=== PATIENT | male | born 1975 | race Caucasian/White ===

== ENCOUNTER 2016-07-07 11:29 | Inpatient (IN) | payer OTHER ==
[2016-07-07 12:03] VITALS: BMI 40.3
[2016-07-07] MEDS ORDERED: MAG HYDROX/AL HYDROX/SIMETH 30 ML UNIT-DOSE CUP PO PRN (13:56)
[2016-07-07] MEDS ORDERED: P-EPHED 60MG/TRIPROLIDI 2.5MG TABLET PO PRN (13:56)
[2016-07-07] MEDS ORDERED: MAGNESIUM CITRATE 300 ML BOTTLE PO PRN (13:56)
[2016-07-07] MEDS ORDERED: hydrOXYzine PAMOATE 50 MG CAPSULE (FP) PO PRN (13:56)
[2016-07-07] MEDS ORDERED: LOPERAMIDE HCL 2 MG CAPSULE PO PRN (13:56)
[2016-07-07] MEDS ORDERED: diphenhydrAMINE HCL 50 MG CAPSULE PO PRN (13:56)
[2016-07-07] MEDS ORDERED: NICOTINE POLACRILEX 4 MG GUM BC PRN (13:56)
[2016-07-07] MEDS ORDERED: IBUPROFEN 400 MG TABLET (FP) PO PRN (13:56)
[2016-07-07] MEDS ORDERED: MAGNESIUM HYDROX 2400MG/30ML ORAL SUSPENSION 30 ML CUP PO PRN (13:56)
[2016-07-07] MEDS ORDERED: MENTHOL/PHENOL 1 EACH UD MM PRN (13:56)
[2016-07-07] MEDS ORDERED: guaiFENesin/D-METHORPHAN HB 10 ML UNIT-DOSE CUPS PO PRN (13:56)
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
[2016-07-07] MEDS ORDERED: METHADONE HCL 10 MG TABLET (FOR DETOX USE ONLY) PO ONE ×2 (15:39→23:00)
[2016-07-07] MEDS: diazePAM 5 MG TABLET PO PRN ×2 (15:53→22:03)
[2016-07-07] MEDS: NICOTINE 21 MG/24 HOURS TOPICAL PATCH TD SCH (15:53)
[2016-07-07] MEDS: hydrALAZINE HCL 50 MG TABLET (FP) PO SCH ×2 (15:53→22:03)
--- NOTE | 2016-07-07 16:36 | CONSULT ---
[facility] Psychiatric Consult - Data Date of interview: 07/07/16 Admission source: [facility] Identifying data: First admission to [facility] for this 41 y/o male seking detox treatment on for alcohol and heroin dependence.Patient is single without children,domiciled,unemployed and supported on welfare. Substance Abuse History: - Smoking Cessation. Smoking history: Current every day smoker. Have you smoked in the past 12 months: Yes. Aproximately how many cigarettes per day: 20. Hx Chewing Tobacco Use: No. Initiated information on smoking cessation: No. 'Breaking Loose' booklet given: 07/07/16. - Substance & Tx. History. Hx Alcohol Use: No. Hx Substance Use: Yes. Substance Use Type : Heroin, Marijuana. Hx Substance Use Treatment: Yes (several years ago inndt detox at [facility]). - Substances Abused. heroon. Route: snort. Frequency: Daily. Amount used: 1 bag ( small little bag). Age of first use: 17. Date of Last Use: 07/06/16. Discused with the patient in my interview.He confirmed this pattern of abuse. Marijuana/Hashish. Route: Inhalation. Frequency: Daily. Amount used: $5/day bag. Age of first use: 17. Date of Last Use: 07/06 Medical History: [place] for hypertension,cardiomegaly and a history of sleep apnea. Psychiatric History: Patient reports a history of multiple psychiatric hospitalizations.Diagnosed with paranoid schizophrenia.Mr Valerio is known to [facility] and [facility].He gets his psychiatric outpatient services at the [facility] mental health clinic in [facility].Maintenance medications consist of haldol 5 mg/day + cogentin 1 mg/day + zoloft 100 mg/day + trazodone 50 mg/hs.Patient states that he took these medications on the day before this [facility] visit.No reported history of suicide attempts. Physical/Sexual Abuse/Trauma History: Patient denies. Additional Comment: Urine Drug Screen Results: THC-Marijuana, OPI-Opiates, MDMA- Ecstasy, BZO-Benzodiazepines, TCA-Tricyclic Antidepressant.Noted. Mental Status Exam - Mental Status Exam Alert and Oriented to: Time, Place, Person Cognitive Function: Good Patient Appearance: Well Groomed Mood: Nervous, Withdrawn, Hopeful Affect: Mood Congruent Patient Behavior: Fatigued, Appropriate, Cooperative (good historian) Speech Pattern: Clear, Appropriate Voice Loudness: Normal Thought Process: Goal Oriented Thought Disorder: Not Present Hallucinations: Denies Suicidal Ideation: Denies Homicidal Ideation: Denies Insight/Judgement: Fair Sleep: Poorly, Difficulty falling asleep Appetite: Good Muscle strength/Tone: Normal Gait/Station: Normal Psychiatric Findings - Problem List ([place] 1, 2,3) (1) Cannabis dependence, uncomplicated Current Visit: Yes Status: Acute (2) Nicotine dependence unspecified, with withdrawal Current Visit: Yes Status: Acute (3) Opioid dependence with withdrawal Current Visit: Yes Status: Acute (4) Methamphetamine dependence Current Visit: Yes Status: Acute (5) Schizophrenia Current Visit: Yes Status: Chronic Qualifiers: Schizophrenia type: paranoid schizophrenia Qualified Code(s): F20.0 - Paranoid schizophrenia (6) Essential (primary) hypertension Current Visit: Yes Status: Acute (7) Hyperlipidemia Current Visit: Yes Status: Chronic (8) Obesity Current Visit: Yes Status: Chronic (9) Sleep apnea syndrome Current Visit: Yes Status: Chronic (10) Insomnia Current Visit: Yes Status: Acute - Initial Treatment Plan Initial Treatment Plan: Psychoeducation.Detoxification.medications :zoloft 100 mg po daily + haldol 5 mg po hs + cogentin 1 mg po hs + trazodone 50 mg po hs.Side effects/benefits of each drug discussed with patient.He is also made aware of the risk of priapism (trazodone) and instructed to get immediate medical attention/stop medication if occurrence of erectile abnormalities ( painful/prolonged erection).Informed of dystonias,neuroleptic malignant syndrome ,dyskinesias (haldol) and urinary retention,dry mouth,blurred vision, constipation (cogentin),sexual dysfunction/suicidal ideation (zoloft).Patient reports that his medications are well tolerated.He agrees to follow this treatment plan.Observation.
[2016-07-07 20:56] LABS: URINE APPEARANCE CLEAR; URINE BILIRUBIN NEGATIVE (NEGATIVE); URINE BLOOD NEGATIVE (NEGATIVE); URINE COLOR LTYELLOW; URINE GLUCOSE (UA) NEGATIVE (NEGATIVE); URINE KETONE NEGATIVE (NEGATIVE); URINE LEUK ESTERASE NEGATIVE (NEGATIVE); URINE NITRITE NEGATIVE (NEGATIVE); URINE UROBILINOGEN NEGATIVE E.U./dl (0.2-1.0)
[2016-07-07 21:07] LABS: URINE PROTEIN 2+ (NEGATIVE)
[2016-07-07 21:41] LABS: URINE RBC 1 /hpf (0-3); URINE WBC 1 /hpf (3-5)
[2016-07-07] MEDS ORDERED: COGENTIN PO SCH (22:00)
[2016-07-07] MEDS ORDERED: LABETALOL HCL 200 MG TABLET (FP) PO SCH (22:00)
[2016-07-07] MEDS: LABETALOL HCL 100 MG TABLET (FP) PO SCH (22:03)
[2016-07-07] MEDS: BENZTROPINE MESYLATE 1 MG TABLET (FP) PO SCH (22:03)
[2016-07-07] MEDS: traZODone HCL 50 MG TABLET (FP) PO SCH (22:03)
[2016-07-07] MEDS: HALOPERIDOL 5 MG TABLET (FP) PO SCH (22:03)
[2016-07-07] MEDS: THIAMINE HCL 100 MG TABLET (FP) PO SCH (22:05)
[2016-07-08] MEDS: diazePAM 5 MG TABLET PO PRN ×2 (05:29→22:26)
[2016-07-08] MEDS: hydrALAZINE HCL 50 MG TABLET (FP) PO SCH ×3 (07:39→22:25)
--- NOTE | 2016-07-08 09:30 | EKG ---
Test Reason : Blood Pressure : / mmHG Vent. Rate : 069 BPM Atrial Rate : 069 BPM P-R Int : 166 ms QRS Dur : 106 ms QT Int : 442 ms P-R-T Axes : 047 027 194 degrees QTc Int : 473 ms NORMAL SINUS RHYTHM POSSIBLE LEFT ATRIAL ENLARGEMENT LEFT VENTRICULAR HYPERTROPHY WITH REPOLARIZATION ABNORMALITY MARKED T WAVE ABNORMALITY, CONSIDER ANTEROLATERAL ISCHEMIA ABNORMAL ECG NO PREVIOUS ECGS AVAILABLE Confirmed by KASHIF MARTINEZ MD ([id number]) on 07/08/2016 9:29:39 AM Referred By: Edi De La O Confirmed By:KASHIF MARTINEZ MD
[2016-07-08] MEDS ORDERED: METHADONE HCL 10 MG TABLET (FOR DETOX USE ONLY) PO ONE (10:00)
[2016-07-08 10:22] LABS: MCH 28.4 pg (25.7-33.7); MCHC 33.1 g/dl (32.0-35.9); MEAN CELL VOLUME 85.9 fl (80-96); MEAN PLT VOLUME 9.4 fl (7.5-11.1); PLATELET COUNT 248 K/MM3 (134-434); RDW 17.2 % (11.9-15.9); WHITE BLOOD COUNT 10.9 K/mm3 (4.0-10.0)
[2016-07-08] MEDS: HYDROCHLOROTHIAZIDE 25 MG TABLET (FP) PO SCH (10:22)
[2016-07-08] MEDS: ATORVASTATIN CA 40 MG TABLET (FP) PO SCH (10:22)
[2016-07-08] MEDS: ASPIRIN COATED 81 MG TABLET.EC PO SCH (10:22)
[2016-07-08] MEDS: PRENATAL VITAMINS W/ FOLIC ACID TABLET (FP) PO SCH (10:22)
[2016-07-08] MEDS: CHLORTHALIDONE 25 MG TABLET PO SCH (10:22)
[2016-07-08] MEDS: NICOTINE 21 MG/24 HOURS TOPICAL PATCH TD SCH (10:22)
[2016-07-08] MEDS: LABETALOL HCL 100 MG TABLET (FP) PO SCH ×2 (10:22→22:25)
[2016-07-08] MEDS: SERTRALINE HCL 50 MG TABLET (FP) PO SCH (10:24)
[2016-07-08] MEDS: ACETAMINOPHEN 325 MG TABLET (FP) PO PRN (10:26)
[2016-07-08] MEDS: NIFEdipine E.R 60 MG TABLET (UD) PO SCH (11:40)
--- NOTE | 2016-07-08 12:00 | PN ---
BHS COWS - Scale Resting Pulse: 0= [place] 80 or Below Sweatin=Flushed/Facial Moisture Restless Observation: 1= Difficult to Sit Still Pupil Size: 0= Normal to Room Light Bone or Joint Aches: 1= Mild Discomfort Runny Nose/ Eye Tearin= Runny Nose/Eyes GI Upset > 30mins: 1= Stomach Cramp Tremor Observation of Outstretched Hands: 2= Slight Tremor Visible Yawning Observation: 1= 1-2x During Session Anxiety or Irritability: 2=Irritable/Anxious Goose Flesh Skin: 0=Smooth Skin COWS Score: 12 BHS Progress Note (SOAP) Subjective: SWEATING,ANXIETY,TREMORS,INTERRUPTED SLEEP,RESTLESS,BODY ACHES Objective: 07/08/16 11:59 Vital Signs - 8 hr 07/08/16 07/08/16 06:18 10:48 Temperature 96.6 F L 97 F L Pulse Rate 67 74 Respiratory 18 18 Rate Blood Pressure 150/99 156/91 Laboratory Tests 07/07/16 07/08/16 18:00 06:10 WBC 10.9 H RBC 5.73 H Hgb 16.3 Hct 49.2 H MCV 85.9 MCHC 33.1 RDW 17.2 H Plt Count 248 MPV 9.4 Urine Color Ltyellow Urine Appearance Clear Urine pH 5.0 Ur Specific [place] 1.016 Urine Protein 2+ H Urine Glucose (UA) Negative Urine Ketones Negative Urine Blood Negative Urine Nitrite Negative Urine Bilirubin Negative Urine Urobilinogen Negative Ur Leukocyte Esterase Negative Urine RBC 1 Urine WBC 1 Ur Epithelial Cells Rare LABS NOTED Assessment: 07/08/16 11:59 WITHDRAWAL SX. Plan: CONTINUE DETOX
[2016-07-08 12:56] LABS: ALBUMIN 3.8 g/dl (3.4-5.0); BILIRUBIN,TOTAL 0.3 mg/dL (0.2-1.0); CALCIUM 8.8 mg/dL (8.5-10.1); CREATININE 2.2 mg/dL (0.7-1.3); TOT PROT 7.4 g/dl (6.4-8.2)
[2016-07-08] MEDS: THIAMINE HCL 100 MG TABLET (FP) PO SCH (22:24)
[2016-07-08] MEDS: HALOPERIDOL 5 MG TABLET (FP) PO SCH (22:24)
[2016-07-08] MEDS: BENZTROPINE MESYLATE 1 MG TABLET (FP) PO SCH (22:25)
[2016-07-08] MEDS: traZODone HCL 50 MG TABLET (FP) PO SCH (22:25)
[2016-07-09] MEDS: diazePAM 5 MG TABLET PO PRN ×4 (05:30→22:27)
[2016-07-09] MEDS: hydrALAZINE HCL 50 MG TABLET (FP) PO SCH ×3 (05:30→22:28)
[2016-07-09] MEDS ORDERED: METHADONE HCL 5 MG TABLET (FOR DETOX USE ONLY) PO ONE (10:00)
[2016-07-09] MEDS: NICOTINE 21 MG/24 HOURS TOPICAL PATCH TD SCH (10:23)
[2016-07-09] MEDS: NIFEdipine E.R 60 MG TABLET (UD) PO SCH (10:23)
[2016-07-09] MEDS: CHLORTHALIDONE 25 MG TABLET PO SCH (10:23)
[2016-07-09] MEDS: ASPIRIN COATED 81 MG TABLET.EC PO SCH (10:23)
[2016-07-09] MEDS: SERTRALINE HCL 50 MG TABLET (FP) PO SCH (10:23)
[2016-07-09] MEDS: LABETALOL HCL 100 MG TABLET (FP) PO SCH (10:23)
[2016-07-09] MEDS: PRENATAL VITAMINS W/ FOLIC ACID TABLET (FP) PO SCH (10:23)
[2016-07-09] MEDS: HYDROCHLOROTHIAZIDE 25 MG TABLET (FP) PO SCH (10:24)
[2016-07-09] MEDS: ATORVASTATIN CA 40 MG TABLET (FP) PO SCH (10:24)
--- NOTE | 2016-07-09 14:10 | PN ---
BHS COWS - Scale Resting Pulse: 0= [place] 80 or Below Sweatin= Chills/Flushing Restless Observation: 3= Extraneous Movement Pupil Size: 0= Normal to Room Light Bone or Joint Aches: 2= Severe Diffuse Aches Runny Nose/ Eye Tearin= Runny Nose/Eyes GI Upset > 30mins: 2= Nausea/Diarrhea Tremor Observation of Outstretched Hands: 2= Slight Tremor Visible Yawning Observation: 0= None Anxiety or Irritability: 2=Irritable/Anxious Goose Flesh Skin: 0=Smooth Skin COWS Score: 14 BHS Progress Note (SOAP) Subjective: Sweating, anxious, interrupted sleep Objective: 07/09/16 14:08 Last Vital Signs Temp Pulse Resp BP Pulse Ox 95.6 F L 74 18 155/101 07/09/16 13:07 07/09/16 13:07 07/09/16 13:07 07/09/16 13:07 Laboratory Tests 07/07/16 07/08/16 07/08/16 18:00 06:10 06:10 WBC 10.9 H RBC 5.73 H Hgb 16.3 Hct 49.2 H MCV 85.9 MCHC 33.1 RDW 17.2 H Plt Count 248 MPV 9.4 Sodium 138 Potassium 5.1 Chloride 100 Carbon Dioxide 29 Anion Gap 9 BUN 45 H Creatinine 2.2 H Creat Clearance w eGFR 33.15 Random Glucose 98 Calcium 8.8 Total Bilirubin 0.3 AST 15 ALT 23 Alkaline Phosphatase 109 Total Protein 7.4 Albumin 3.8 Urine Color Ltyellow Urine Appearance Clear Urine pH 5.0 Ur Specific [place] 1.016 Urine Protein 2+ H Urine Glucose (UA) Negative Urine Ketones Negative Urine Blood Negative Urine Nitrite Negative Urine Bilirubin Negative Urine Urobilinogen Negative Ur Leukocyte Esterase Negative Urine RBC 1 Urine WBC 1 Ur Epithelial Cells Rare RPR Titer 07/08/16 06:10 WBC RBC Hgb Hct MCV MCHC RDW Plt Count MPV Sodium Potassium Chloride Carbon Dioxide Anion Gap BUN Creatinine Creat Clearance w eGFR Random Glucose Calcium Total Bilirubin AST ALT Alkaline Phosphatase Total Protein Albumin Urine Color Urine Appearance Urine pH Ur Specific [place] Urine Protein Urine Glucose (UA) Urine Ketones Urine Blood Urine Nitrite Urine Bilirubin Urine Urobilinogen Ur Leukocyte Esterase Urine RBC Urine WBC Ur Epithelial Cells RPR Titer Nonreactive Labs noted: BUN 45, serum creatinine 2.2, UA 2+ protein Assessment: 07/09/16 14:09 Withdrawal symptoms Noted with HTN, uncontrolled Noted with FRED Noted with proteinuria Plan: Continue detox Uncontrolled HTN: will consider adjusting medication FRED: encouraged to drink more water, repeat BMP Proteinuria: repeat UA, encouraged to drink lots of water
[2016-07-09] MEDS ORDERED: FUROSEMIDE 40 MG TABLET (FP) PO ONE (14:59)
[2016-07-09] MEDS ORDERED: NIFEdipine E.R 60 MG TABLET (UD) PO SCH (15:01)
[2016-07-09] MEDS ORDERED: NIFEdipine E.R. 30 MG TABLET (FP) PO ONE (15:10)
[2016-07-09] MEDS: NIFEdipine E.R. 90 MG TABLET (FP) PO SCH (17:14)
[2016-07-09] MEDS: THIAMINE HCL 100 MG TABLET (FP) PO SCH (22:27)
[2016-07-09] MEDS: traZODone HCL 50 MG TABLET (FP) PO SCH (22:28)
[2016-07-09] MEDS: LABETALOL HCL 200 MG TABLET (FP) PO SCH (22:28)
[2016-07-09] MEDS: HALOPERIDOL 5 MG TABLET (FP) PO SCH (22:28)
[2016-07-09] MEDS: BENZTROPINE MESYLATE 1 MG TABLET (FP) PO SCH (22:28)
[2016-07-10] MEDS: hydrALAZINE HCL 50 MG TABLET (FP) PO SCH ×3 (05:28→22:03)
[2016-07-10] MEDS: diazePAM 5 MG TABLET PO PRN ×2 (05:28→10:25)
[2016-07-10] MEDS: FUROSEMIDE 40 MG TABLET (FP) PO SCH ×2 (05:28→14:26)
[2016-07-10] MEDS ORDERED: METHADONE HCL 5 MG TABLET (FOR DETOX USE ONLY) PO ONE (10:00)
[2016-07-10 10:19] LABS: CALCIUM 9.6 mg/dL (8.5-10.1)
[2016-07-10] MEDS: PRENATAL VITAMINS W/ FOLIC ACID TABLET (FP) PO SCH (10:22)
[2016-07-10] MEDS: NICOTINE 21 MG/24 HOURS TOPICAL PATCH TD SCH (10:24)
[2016-07-10] MEDS: ASPIRIN COATED 81 MG TABLET.EC PO SCH (10:24)
[2016-07-10] MEDS: SERTRALINE HCL 50 MG TABLET (FP) PO SCH (10:24)
[2016-07-10] MEDS: NIFEdipine E.R. 90 MG TABLET (FP) PO SCH (10:25)
[2016-07-10] MEDS: LABETALOL HCL 200 MG TABLET (FP) PO SCH (10:25)
--- NOTE | 2016-07-10 11:11 | PN ---
BHS Progress Note (SOAP) Subjective: SWEATING,INTERRUPTED SLEEP,RESTLESS Objective: 07/10/16 11:10 Vital Signs - 8 hr 07/10/16 07/10/16 07/10/16 03:30 06:10 09:38 Temperature 96.3 F L 96.2 F L Pulse Rate 87 91 H Respiratory 18 18 18 Rate Blood Pressure 144/86 145/74 Laboratory Tests 07/07/16 07/08/16 07/08/16 18:00 06:10 06:10 WBC 10.9 H RBC 5.73 H Hgb 16.3 Hct 49.2 H MCV 85.9 MCHC 33.1 RDW 17.2 H Plt Count 248 MPV 9.4 Sodium 138 Potassium 5.1 Chloride 100 Carbon Dioxide 29 Anion Gap 9 BUN 45 H Creatinine 2.2 H Creat Clearance w eGFR 33.15 Random Glucose 98 Calcium 8.8 Total Bilirubin 0.3 AST 15 ALT 23 Alkaline Phosphatase 109 Total Protein 7.4 Albumin 3.8 Urine Color Ltyellow Urine Appearance Clear Urine pH 5.0 Ur Specific [place] 1.016 Urine Protein 2+ H Urine Glucose (UA) Negative Urine Ketones Negative Urine Blood Negative Urine Nitrite Negative Urine Bilirubin Negative Urine Urobilinogen Negative Ur Leukocyte Esterase Negative Urine RBC 1 Urine WBC 1 Ur Epithelial Cells Rare RPR Titer 07/08/16 07/10/16 06:10 06:30 WBC RBC Hgb Hct MCV MCHC RDW Plt Count MPV Sodium 141 Potassium 3.9 D Chloride 100 Carbon Dioxide 31 Anion Gap 10 BUN 46 H Creatinine 2.0 H Creat Clearance w eGFR Random Glucose 96 Calcium 9.6 Total Bilirubin AST ALT Alkaline Phosphatase Total Protein Albumin Urine Color Urine Appearance Urine pH Ur Specific [place] Urine Protein Urine Glucose (UA) Urine Ketones Urine Blood Urine Nitrite Urine Bilirubin Urine Urobilinogen Ur Leukocyte Esterase Urine RBC Urine WBC Ur Epithelial Cells RPR Titer Nonreactive LABS NOTED Assessment: 07/10/16 11:10 WITHDRAWAL SX. Plan: CONTINUE DETOX
[2016-07-10] MEDS: ACETAMINOPHEN 325 MG TABLET (FP) PO PRN (17:35)
[2016-07-10] MEDS: HALOPERIDOL 5 MG TABLET (FP) PO SCH (22:03)
[2016-07-10] MEDS: LABETALOL HCL 100 MG TABLET (FP) PO SCH (22:03)
[2016-07-10] MEDS: ATORVASTATIN CA 40 MG TABLET (FP) PO SCH (22:03)
[2016-07-10] MEDS: BENZTROPINE MESYLATE 1 MG TABLET (FP) PO SCH (22:03)
[2016-07-10] MEDS: THIAMINE HCL 100 MG TABLET (FP) PO SCH (22:03)
[2016-07-10] MEDS: traZODone HCL 50 MG TABLET (FP) PO SCH (22:03)
[2016-07-11] MEDS: hydrALAZINE HCL 50 MG TABLET (FP) PO SCH ×3 (05:42→22:03)
[2016-07-11] MEDS: FUROSEMIDE 40 MG TABLET (FP) PO SCH ×2 (05:42→14:12)
[2016-07-11] MEDS ORDERED: METHADONE HCL 10 MG TABLET (FOR DETOX USE ONLY) PO ONE (10:00)
--- NOTE | 2016-07-11 10:06 | PN ---
BHS Progress Note (SOAP) Subjective: sweating,interrupted sleep,restless Objective: 07/11/16 10:02 Vital Signs - 24 hr 07/10/16 07/10/16 07/10/16 13:44 17:40 22:17 Temperature 97.9 F 96.7 F L 96.4 F L Pulse Rate 85 78 87 Respiratory 18 18 20 Rate Blood Pressure 144/74 135/75 152/86 07/11/16 07/11/16 03:30 06:20 Temperature 98.8 F Pulse Rate 81 Respiratory 18 16 Rate Blood Pressure 150/79 Laboratory Tests 07/07/16 07/08/16 07/08/16 18:00 06:10 06:10 WBC 10.9 H RBC 5.73 H Hgb 16.3 Hct 49.2 H MCV 85.9 MCHC 33.1 RDW 17.2 H Plt Count 248 MPV 9.4 Sodium 138 Potassium 5.1 Chloride 100 Carbon Dioxide 29 Anion Gap 9 BUN 45 H Creatinine 2.2 H Creat Clearance w eGFR 33.15 Random Glucose 98 Calcium 8.8 Total Bilirubin 0.3 AST 15 ALT 23 Alkaline Phosphatase 109 Total Protein 7.4 Albumin 3.8 Urine Color Ltyellow Urine Appearance Clear Urine pH 5.0 Ur Specific [place] 1.016 Urine Protein 2+ H Urine Glucose (UA) Negative Urine Ketones Negative Urine Blood Negative Urine Nitrite Negative Urine Bilirubin Negative Urine Urobilinogen Negative Ur Leukocyte Esterase Negative Urine RBC 1 Urine WBC 1 Ur Epithelial Cells Rare RPR Titer 07/08/16 07/10/16 06:10 06:30 WBC RBC Hgb Hct MCV MCHC RDW Plt Count MPV Sodium 141 Potassium 3.9 D Chloride 100 Carbon Dioxide 31 Anion Gap 10 BUN 46 H Creatinine 2.0 H Creat Clearance w eGFR Random Glucose 96 Calcium 9.6 Total Bilirubin AST ALT Alkaline Phosphatase Total Protein Albumin Urine Color Urine Appearance Urine pH Ur Specific [place] Urine Protein Urine Glucose (UA) Urine Ketones Urine Blood Urine Nitrite Urine Bilirubin Urine Urobilinogen Ur Leukocyte Esterase Urine RBC Urine WBC Ur Epithelial Cells RPR Titer Nonreactive I had a thorough discussion with pt. about his labs results. I advise pt. to discuss results with his primary doctor and request consultations with diamond sawer & reporting specialist.A copy of labs is given to pt. with his D/C papers. Assessment: 07/11/16 10:05 withdrawal sx HTN CKI Plan: continue detox
[2016-07-11] MEDS: NICOTINE 21 MG/24 HOURS TOPICAL PATCH TD SCH (10:12)
[2016-07-11] MEDS: LABETALOL HCL 100 MG TABLET (FP) PO SCH ×2 (10:13→22:03)
[2016-07-11] MEDS: PRENATAL VITAMINS W/ FOLIC ACID TABLET (FP) PO SCH (10:13)
[2016-07-11] MEDS: SERTRALINE HCL 50 MG TABLET (FP) PO SCH (10:13)
[2016-07-11] MEDS: NIFEdipine E.R. 90 MG TABLET (FP) PO SCH (10:13)
[2016-07-11] MEDS: ASPIRIN COATED 81 MG TABLET.EC PO SCH (10:37)
[2016-07-11 20:35] LABS: URINE APPEARANCE CLEAR; URINE BILIRUBIN NEGATIVE (NEGATIVE); URINE BLOOD NEGATIVE (NEGATIVE); URINE COLOR LTYELLOW; URINE GLUCOSE (UA) NEGATIVE (NEGATIVE); URINE KETONE NEGATIVE (NEGATIVE); URINE LEUK ESTERASE NEGATIVE (NEGATIVE); URINE NITRITE NEGATIVE (NEGATIVE); URINE UROBILINOGEN NEGATIVE E.U./dl (0.2-1.0)
[2016-07-11 20:41] LABS: URINE PROTEIN 1+ (NEGATIVE)
[2016-07-11 20:46] LABS: URINE RBC 1 /hpf (0-3); URINE WBC 1 /hpf (3-5)
[2016-07-11] MEDS: BENZTROPINE MESYLATE 1 MG TABLET (FP) PO SCH (22:03)
[2016-07-11] MEDS: HALOPERIDOL 5 MG TABLET (FP) PO SCH (22:03)
[2016-07-11] MEDS: ATORVASTATIN CA 40 MG TABLET (FP) PO SCH (22:03)
[2016-07-11] MEDS: THIAMINE HCL 100 MG TABLET (FP) PO SCH (22:03)
[2016-07-11] MEDS: traZODone HCL 50 MG TABLET (FP) PO SCH (22:03)
[2016-07-12] MEDS: hydrALAZINE HCL 50 MG TABLET (FP) PO SCH (05:45)
[2016-07-12] MEDS: FUROSEMIDE 40 MG TABLET (FP) PO SCH (05:45)
[2016-07-12] MEDS ORDERED: METHADONE HCL 5 MG TABLET (FOR DETOX USE ONLY) PO ONE (06:00)
[2016-07-12 06:21] VITALS: TEMP 97.7
--- NOTE | 2016-07-12 09:19 | DS ---
[facility] Detox Discharge Summary Admission Date: 07/07/16 Discharge Date: 07/12/16 - History Present History: Cannabis Dependence, Opioid Dependence Additional Comments: DETOX COMPLETED. PT INSTRUCTED TO FOLLOW UP WITH PMD AT [place], [place] FOR MEDICAL MANAGEMENT OF COMORBID CONDITIONS. PT CONFIRMED HE HAS OWN MEDS. Pertinent Past History: HTN HYPERLIPIDEMIA OBESITY - Physical Exam Results Vital Signs: Vital Signs Temperature 97.7 F 07/12/16 06:20 Pulse Rate 86 07/12/16 06:20 Respiratory Rate 18 07/12/16 06:20 Blood Pressure 140/83 07/12/16 06:20 O2 Sat by Pulse Oximetry (%) Pertinent Admission Physical Exam Findings: WITHDRAWAL SX - Treatment Hospital Course: Detox Protocol Followed, Detoxed Safely, Responded well, Discharged Condition Good - Medication Discharge Medications: Ambulatory Orders Aspirin [Aspirin EC] 81 mg PO DAILY 07/07/16 Atorvastatin Calcium 40 mg PO DAILY 07/07/16 Benztropine Mesylate [Cogentin -] 1 mg PO HS #30 tablet 07/07/16 Chlorthalidone [Hygroton -] 50 mg PO DAILY 07/07/16 Cogentin - 1 mg PO HS 07/07/16 Haldol - 5 mg PO DAILY 07/07/16 Haloperidol [Haldol -] 5 mg PO HS #30 tablet 07/07/16 Hydralazine HCl 50 mg PO TID 07/07/16 Hydrochlorothiazide [Hctz -] 25 mg PO DAILY 07/07/16 Labetalol HCl [Normodyne -] 200 mg PO BID 07/07/16 Nifedipine ER [Procardia XL -] 60 mg PO DAILY 07/07/16 Sertraline HCl [Zoloft -] 100 mg PO DAILY 07/07/16 Sertraline HCl [Zoloft -] 100 mg PO DAILY #30 tablet 07/07/16 Trazodone HCl 50 mg PO HS 07/07/16 Trazodone HCl [Desyrel -] 50 mg PO HS #30 tablet 07/07/16 - Diagnosis (1) Cannabis dependence, uncomplicated Status: Acute (2) Essential (primary) hypertension Status: Chronic (3) Nicotine dependence unspecified, with withdrawal Status: Chronic Qualifiers: Nicotine product type: cigarettes Qualified Code(s): F17.213 - Nicotine dependence, cigarettes, with withdrawal (4) Opioid dependence with withdrawal Status: Acute (5) Hyperlipidemia Status: Chronic Qualifiers: Hyperlipidemia type: unspecified Qualified Code(s): E78.5 - Hyperlipidemia, unspecified (6) Obesity Status: Chronic (7) Insomnia Status: Acute (8) Methamphetamine dependence Status: Acute (9) Schizophrenia Status: Chronic Qualifiers: Schizophrenia type: paranoid schizophrenia Qualified Code(s): F20.0 - Paranoid schizophrenia - AMA Did Patient Leave Against Medical Advice: No
[2016-07-12 09:47] VITALS: BP 139/81; PULSE 80
== END 2016-07-12 09:43 | disposition home or self-care (01) | DRG 773 ==
LOC: YASAS 11:29 → Y3N 14:23
PROVIDERS: ADMIT Internal Medicine; ATTEND Internal Medicine
PROC: HZ2ZZZZ Detoxification Services for Substance Abuse Treatment (ICD-10-PCS; principal; 2016-07-12)
DX: F11.23 Opioid dependence with withdrawal (principal); F15.20 Other stimulant dependence, uncomplicated; F12.20 Cannabis dependence, uncomplicated; F17.213 Nicotine dependence, cigarettes, with withdrawal; F20.0 Paranoid schizophrenia; G47.00 Insomnia, unspecified; G47.39 Other sleep apnea; I10 Essential (primary) hypertension; E66.01 Morbid (severe) obesity due to excess calories; Z68.41 Body mass index [BMI] 40.0-44.9, adult
CPT/HCPCS: 36415; 80048; 80053; 81003; 81015; 85027; 86593; 93005; 93010